=== PATIENT | male | born 1965 | race Caucasian/White ===

== ENCOUNTER 2022-11-08 09:19 | Emergency (ER) | payer OTHER ==
[~2022-11-08] VITALS: Ht 177.8 cm; Wt 74.8 kg
[2022-11-08 09:42] VITALS: BP 143/69; PULSE 98; RESP 20; TEMP 98.1; O2SAT 94
[2022-11-08 11:00] LABS: FLU A ANTIGEN negative (NEGATIVE); FLU B ANTIGEN NEGATIVE (NEGATIVE)
[2022-11-08] MEDS ORDERED: NACL 0.9% 1,000 ML IV ONE ×2 (11:00→13:15)
[2022-11-08 12:20] LABS: BASOPHILS % (AUTO) 0.1 % (0.0-2.0); EOSINOPHILS # (AUTO) 0.1 K/uL (0-0.4); EOSINOPHILS % (AUTO) 0.8 % (0.0-4.0); HEMATOCRIT 34.1 % (36-52); HEMOGLOBIN 11.7 g/dL (12.0-18.0); LYMPHOCYTES # (AUTO) 0.4 K/uL (2.0-11.5); LYMPHOCYTES % (AUTO) 5.6 % (20.5-51.1); MEAN CORPUSCULAR HEMOGLOBIN 29 pg (27-31); MEAN CORPUSCULAR HGB CONC 34 g/dL (33-37); MEAN CORPUSCULAR VOLUME 83.5 fL (80-94); MONOCYTES # (AUTO) 0.4 K/uL (0.8-1.0); MONOCYTES % (AUTO) 5.8 % (1.7-9.3); NEUTROPHILS # (AUTO) 5.7 K/uL (1.8-7.7); NEUTROPHILS % (AUTO) 87.7 % (42.2-75.2); PLATELET COUNT (AUTO) 137 K/uL (140-450); RED BLOOD CELL COUNT(AUTO) 4.08 MIL/uL (4.20-6.10); RED CELL DISTRIBUTION WIDTH 13.4 % (11.6-13.7); WHITE BLOOD COUNT (AUTO) 6.5 K/uL (4.8-10.8)
[2022-11-08 12:44] LABS: ANION GAP 5.2 (8-16); CALCIUM 7.8 mg/dL (8.5-10.1); CARBON DIOXIDE 31.1 mmol/L (21-32); CREATININE 0.8 mg/dL (0.6-1.3); POTASSIUM 4.3 mmol/L (3.5-5.1); TOTAL BILIRUBIN 0.3 mg/dL (0.0-1.0); TOTAL PROTEIN, SERUM 5.8 g/dL (6.4-8.2)
[2022-11-08 12:55] LABS: LACTIC ACID 0.6 mmol/L (0.4-2.0)
[2022-11-08 14:42] VITALS: BP 151/61; PULSE 82; RESP 16; TEMP 98.2; O2SAT 98
== END 2022-11-08 14:50 | disposition home or self-care (01) ==
LOC: MED 09:19
DX: B34.9 Viral infection, unspecified (principal); E86.0 Dehydration; E87.1 Hypo-osmolality and hyponatremia; H91.3 Deaf nonspeaking, not elsewhere classified; F84.0 Autistic disorder; Z20.822 Contact with and (suspected) exposure to COVID-19
CPT/HCPCS: 36415; 71045; 73090; 80053; 83605; 83880; 84484; 85025; 87040; 93005; 96360; 96361; 99285

== ENCOUNTER 2023-07-08 15:41 | Inpatient (IN) | payer OTHER ==
[~2023-07-08] VITALS: Ht 172.7 cm; Wt 58.5 kg
[2023-07-08 16:20] VITALS: BP 154/66; PULSE 76; RESP 17; TEMP 98.3; O2SAT 98
[2023-07-08] MEDS: NACL 0.9% 1,000 ML IV ONE (17:20)
[2023-07-08 17:23] LABS: BASOPHILS # (AUTO) 0.1 K/uL (0.00-0.22); BASOPHILS % (AUTO) 0.7 % (0.0-2.0); EOSINOPHILS # (AUTO) 0.3 K/uL (0-0.4); HEMATOCRIT 33.7 % (36-52); HEMOGLOBIN 11.7 g/dL (12.0-18.0); LYMPHOCYTES % (AUTO) 13.2 % (20.5-51.1); MEAN CORPUSCULAR HEMOGLOBIN 29 pg (27-31); MEAN CORPUSCULAR HGB CONC 35 g/dL (33-37); MEAN CORPUSCULAR VOLUME 83.3 fL (80-94); MONOCYTES # (AUTO) 0.6 K/uL (0.8-1.0); MONOCYTES % (AUTO) 8.3 % (1.7-9.3); NEUTROPHILS # (AUTO) 5.8 K/uL (1.8-7.7); NEUTROPHILS % (AUTO) 73.8 % (42.2-75.2); PLATELET COUNT (AUTO) 259 K/uL (140-450); RED BLOOD CELL COUNT(AUTO) 4.05 MIL/uL (4.20-6.10); RED CELL DISTRIBUTION WIDTH 14.2 % (11.6-13.7); WHITE BLOOD COUNT (AUTO) 7.8 K/uL (4.8-10.8)
[2023-07-08 17:44] LABS: APPEARANCE,URINE CLEAR (CLEAR); BILIRUBIN,URINE NEGATIVE (NEGATIVE); BLOOD, URINE NEGATIVE (NEGATIVE); COLOR,URINE YELLOW (YELLOW); LEUKOCYTE ESTERASE ,URINE NEGATIVE (NEGATIVE); NITRITE, URINE NEGATIVE (NEGATIVE); PROTEIN,URINE NEGATIVE (NEGATIVE); UGLUCOSE NEGATIVE (NEGATIVE); UROBILINOGEN,URINE 0.2 EU/dL (0.2 - 1)
[2023-07-08 17:55] LABS: ALBUMIN 3.2 g/dL (3.4-5.0); ANION GAP 9.9 (8-16); CALCIUM 8.6 mg/dL (8.5-10.1); CARBON DIOXIDE 29.9 mmol/L (21-32); CREATININE 0.7 mg/dL (0.6-1.3); POTASSIUM 4.8 mmol/L (3.5-5.1); TOTAL BILIRUBIN 0.8 mg/dL (0.0-1.0)
[2023-07-08 19:21] VITALS: O2SAT 98
[2023-07-08] MEDS ORDERED: cefTRIAXone 1,000 MG VIAL ONE (20:33)
[2023-07-08 21:01] LABS: FLU A ANTIGEN negative (NEGATIVE); FLU B ANTIGEN NEGATIVE (NEGATIVE)
[2023-07-08] MEDS ORDERED: AZITHROMYCIN 500 MG INJ VIAL IV ONE (21:30)
[2023-07-08] MEDS: AZITHROMYCIN 500 MG in DEXTROSE 5% 250 ML IV ONE (21:46)
[2023-07-08] MEDS ORDERED: OLAN20TA1 PO (22:52)
[2023-07-08] MEDS ORDERED: QUET200T PO (22:52)
[2023-07-08] MEDS ORDERED: BENZ-284 PO (22:52)
[2023-07-08] MEDS ORDERED: OXCA300T PO (22:52)
[2023-07-08] MEDS ORDERED: LAM200 PO (22:52)
[2023-07-08] MEDS ORDERED: TRAZ-343 PO (22:52)
[2023-07-09] MEDS ORDERED: cefTRIAXone 1,000 MG VIAL ONE (01:58)
[2023-07-09 03:50] VITALS: O2SAT 98
[2023-07-09 08:30] VITALS: PULSE 86; RESP 17; O2SAT 98
[2023-07-09] MEDS: BENZTROPINE 1 MG TAB PO SCH (09:00)
[2023-07-09] MEDS: OXcarbazepine 150 MG TAB PO SCH (10:06)
[2023-07-09] MEDS: NACL 0.9% 1,000 ML IV SCH (11:15)
[2023-07-09 12:00] VITALS: BP 136/68; PULSE 75; PULSE 84; RESP 18; TEMP 97.2; O2SAT 98
[2023-07-09 12:31] LABS: ANION GAP 12.4 (8-16); CALCIUM 8.7 mg/dL (8.5-10.1); CARBON DIOXIDE 28.9 mmol/L (21-32); CREATININE 0.6 mg/dL (0.6-1.3); POTASSIUM 4.3 mmol/L (3.5-5.1)
[2023-07-09 16:00] VITALS: BP 140/64; PULSE 74; PULSE 87; RESP 18; TEMP 97.6; O2SAT 99
[2023-07-09] MEDS: LORazepam 2 MG/ML VIAL IM/IVP PRN (17:03)
[2023-07-09 20:00] VITALS: BP 145/64; PULSE 76; PULSE 88; RESP 17; TEMP 98.6; O2SAT 96
[2023-07-09] MEDS: QUEtiapine FUMARATE 100 MG TAB PO SCH (21:26)
[2023-07-09] MEDS: OLANZapine 5 MG TAB PO SCH (21:29)
[2023-07-09] MEDS: traZODone 50 MG TAB PO SCH (21:36)
[2023-07-09] MEDS: AZITHROMYCIN 500 MG in DEXTROSE 5% 250 ML IV SCH (21:45)
[2023-07-10] VITALS (7 sets, daily range): BP systolic 116–146; BP diastolic 38–61; PULSE 64–86; RESP 16–18; TEMP 97–97.4; O2SAT 93–98
[2023-07-10 06:46] LABS: ANION GAP 11.8 (8-16); CARBON DIOXIDE 28.9 mmol/L (21-32); CREATININE 0.7 mg/dL (0.6-1.3); POTASSIUM 4.7 mmol/L (3.5-5.1)
[2023-07-10 15:08] LABS: CREATININE,URINE RANDOM 37 mg/dL (30-125); URINE SODIUM, RANDOM 58 mmol/l (40-220)
[2023-07-10] MEDS ORDERED: VANCOMYCIN PER PHARMACY MC PRN (18:00)
[2023-07-10] MEDS: VANCOMYCIN 750 MG in DEXTROSE 5% 250 ML IV SCH (22:13)
[2023-07-11 04:00] VITALS: BP 126/50; PULSE 74; RESP 19; TEMP 96.2; O2SAT 98
[2023-07-11 07:03] LABS: BASOPHILS % (AUTO) 0.5 % (0.0-2.0); EOSINOPHILS # (AUTO) 0.4 K/uL (0-0.4); EOSINOPHILS % (AUTO) 4.9 % (0.0-4.0); HEMATOCRIT 39.1 % (36-52); HEMOGLOBIN 13.3 g/dL (12.0-18.0); LYMPHOCYTES % (AUTO) 13.4 % (20.5-51.1); MEAN CORPUSCULAR HEMOGLOBIN 29 pg (27-31); MEAN CORPUSCULAR HGB CONC 34 g/dL (33-37); MEAN CORPUSCULAR VOLUME 83.5 fL (80-94); MONOCYTES # (AUTO) 0.6 K/uL (0.8-1.0); MONOCYTES % (AUTO) 7.4 % (1.7-9.3); NEUTROPHILS # (AUTO) 5.5 K/uL (1.8-7.7); NEUTROPHILS % (AUTO) 73.8 % (42.2-75.2); PLATELET COUNT (AUTO) 253 K/uL (140-450); RED BLOOD CELL COUNT(AUTO) 4.68 MIL/uL (4.20-6.10); RED CELL DISTRIBUTION WIDTH 14.4 % (11.6-13.7); WHITE BLOOD COUNT (AUTO) 7.5 K/uL (4.8-10.8)
[2023-07-11 07:08] LABS: ANION GAP 10.4 (8-16); CARBON DIOXIDE 30.2 mmol/L (21-32); CREATININE 0.6 mg/dL (0.6-1.3); POTASSIUM 4.6 mmol/L (3.5-5.1)
[2023-07-11 08:00] VITALS: BP 162/63; PULSE 65; RESP 18; TEMP 96.5; O2SAT 96; O2SAT 99
[2023-07-11 16:37] VITALS: O2SAT 98
[2023-07-11] MEDS: VANCOMYCIN 750 MG in NACL 0.9% 250 ML IV SCH (18:09)
[2023-07-11 20:00] VITALS: BP 155/67; PULSE 72; RESP 18; TEMP 97.1; O2SAT 94
[2023-07-12 04:00] VITALS: BP 132/61; PULSE 70; RESP 18; TEMP 97.1; O2SAT 100
[2023-07-12 08:00] VITALS: PULSE 72; RESP 18; O2SAT 94
[2023-07-12] MEDS: NAFCILLIN 2,000 MG in DEXTROSE 5% 100 ML IV SCH ×2 (13:15)
[2023-07-12 16:00] VITALS: BP 150/64; PULSE 68; RESP 18; TEMP 97.8; O2SAT 99
[2023-07-12 20:00] VITALS: BP 127/60; PULSE 78; RESP 16; TEMP 97.1; O2SAT 94
[2023-07-13 04:00] VITALS: BP 125/80; PULSE 78; RESP 18; TEMP 98.2; O2SAT 96
[2023-07-13 08:00] VITALS: BP 148/59; PULSE 71; PULSE 78; RESP 16; RESP 19; TEMP 98.3; O2SAT 98
[2023-07-13 16:00] VITALS: BP 164/59; PULSE 71; RESP 19; TEMP 98.2; O2SAT 98
[2023-07-13 20:00] VITALS: BP 129/54; PULSE 80; RESP 18; TEMP 97.8; O2SAT 92
[2023-07-14 04:00] VITALS: BP 136/53; PULSE 63; RESP 18; TEMP 97.1; O2SAT 97
[2023-07-14 07:16] LABS: BASOPHILS % (AUTO) 0.9 % (0.0-2.0); EOSINOPHILS # (AUTO) 0.3 K/uL (0-0.4); EOSINOPHILS % (AUTO) 6.6 % (0.0-4.0); HEMOGLOBIN 12.2 g/dL (12.0-18.0); LYMPHOCYTES # (AUTO) 0.8 K/uL (2.0-11.5); MEAN CORPUSCULAR HEMOGLOBIN 29 pg (27-31); MEAN CORPUSCULAR HGB CONC 35 g/dL (33-37); MEAN CORPUSCULAR VOLUME 82.7 fL (80-94); MONOCYTES # (AUTO) 0.4 K/uL (0.8-1.0); MONOCYTES % (AUTO) 8.7 % (1.7-9.3); NEUTROPHILS # (AUTO) 2.9 K/uL (1.8-7.7); NEUTROPHILS % (AUTO) 65.8 % (42.2-75.2); PLATELET COUNT (AUTO) 193 K/uL (140-450); RED BLOOD CELL COUNT(AUTO) 4.23 MIL/uL (4.20-6.10); RED CELL DISTRIBUTION WIDTH 14.6 % (11.6-13.7); WHITE BLOOD COUNT (AUTO) 4.4 K/uL (4.8-10.8)
[2023-07-14 07:41] LABS: CALCIUM 8.6 mg/dL (8.5-10.1); CARBON DIOXIDE 28.3 mmol/L (21-32); CREATININE 0.6 mg/dL (0.6-1.3); POTASSIUM 4.3 mmol/L (3.5-5.1)
[2023-07-14 08:00] VITALS: BP 157/67; PULSE 72; RESP 19; TEMP 97.4; O2SAT 98
[2023-07-14 18:00] VITALS: BP 139/58; PULSE 78; RESP 19; TEMP 98.6; O2SAT 97
[2023-07-14 20:00] VITALS: BP 144/63; PULSE 88; RESP 20; TEMP 99.1; O2SAT 95
[2023-07-15 04:00] VITALS: BP 142/56; PULSE 76; RESP 18; TEMP 99; O2SAT 97
[2023-07-15 08:00] VITALS: PULSE 84; RESP 20; O2SAT 94
[2023-07-15 12:00] VITALS: BP 142/56; PULSE 84; RESP 20; TEMP 99; O2SAT 94
[2023-07-15 15:58] VITALS: O2SAT 94
[2023-07-15 20:00] VITALS: BP 147/58; PULSE 76; RESP 18; TEMP 98.3; O2SAT 92; O2SAT 93
[2023-07-16 04:00] VITALS: BP 135/54; PULSE 68; RESP 18; TEMP 97; O2SAT 94
[2023-07-16 05:23] LABS: BASOPHILS % (AUTO) 0.6 % (0.0-2.0); EOSINOPHILS # (AUTO) 0.4 K/uL (0-0.4); EOSINOPHILS % (AUTO) 7.2 % (0.0-4.0); HEMATOCRIT 37.5 % (36-52); LYMPHOCYTES % (AUTO) 17.5 % (20.5-51.1); MEAN CORPUSCULAR HEMOGLOBIN 29 pg (27-31); MEAN CORPUSCULAR HGB CONC 35 g/dL (33-37); MEAN CORPUSCULAR VOLUME 83.3 fL (80-94); MONOCYTES # (AUTO) 0.6 K/uL (0.8-1.0); MONOCYTES % (AUTO) 10.4 % (1.7-9.3); NEUTROPHILS # (AUTO) 3.8 K/uL (1.8-7.7); NEUTROPHILS % (AUTO) 64.3 % (42.2-75.2); PLATELET COUNT (AUTO) 217 K/uL (140-450); RED CELL DISTRIBUTION WIDTH 14.5 % (11.6-13.7); WHITE BLOOD COUNT (AUTO) 5.9 K/uL (4.8-10.8)
[2023-07-16 05:45] LABS: CARBON DIOXIDE 29.5 mmol/L (21-32); CREATININE 0.7 mg/dL (0.6-1.3); POTASSIUM 4.5 mmol/L (3.5-5.1)
[2023-07-16 08:00] VITALS: PULSE 67; RESP 18; O2SAT 100
[2023-07-16] MEDS ORDERED: NAFC1SOL1 IV (09:47)
[2023-07-16 12:00] VITALS: BP 135/54; PULSE 67; RESP 18; TEMP 97; O2SAT 100
== END 2023-07-16 16:55 | DRG 871 ==
LOC: MED 15:41 → MTU 20:21
PROVIDERS: ADMIT Internal Medicine; ATTEND Internal Medicine
DX: A41.01 Sepsis due to Methicillin susceptible Staphylococcus aureus (principal); J15.69 Pneumonia due to other Gram-negative bacteria; E87.1 Hypo-osmolality and hyponatremia; N17.9 Acute kidney failure, unspecified; F03.911 Unspecified dementia, unspecified severity, with agitation; I38 Endocarditis, valve unspecified; Z20.822 Contact with and (suspected) exposure to COVID-19; Z79.2 Long term (current) use of antibiotics; Z79.899 Other long term (current) drug therapy
CPT/HCPCS: 36415; 71045; 80048; 80053; 81003; 82570; 83690; 83880; 83935; 84300; 84443; 85025; 87040; 87186; 96361; 96365; 96367; 97110; 97116; 97163-GP; 97530; 99285; J0456; J0696; J2060; J3370; J3490; J7030; J7060; Q0092

== ENCOUNTER 2023-12-31 15:56 | Emergency (ER) | payer OTHER ==
[~2023-12-31] VITALS: Ht 175.3 cm; Wt 73.6 kg
[~2023-12-31 15:56] MED LIST: BENZ-284 PO; LAM200 PO; NAFC1SOL1 IV; OLAN20TA1 PO; OXCA300T PO; QUET200T PO; TRAZ-343 PO
[2023-12-31 16:09] VITALS: BP 141/103; PULSE 72; RESP 18; TEMP 97.2; O2SAT 97
[2023-12-31] MEDS ORDERED: ROB PO (17:48)
[2023-12-31] MEDS ORDERED: AMOX-1230 PO (17:48)
== END 2023-12-31 17:56 | disposition home or self-care (01) ==
LOC: MED 15:56
DX: J40 Bronchitis, not specified as acute or chronic (principal); R03.0 Elevated blood-pressure reading, without diagnosis of hypertension; Z86.73 Personal history of transient ischemic attack (TIA), and cerebral infarction without residual deficits; Z79.899 Other long term (current) drug therapy
CPT/HCPCS: 71045; 99283